=== PATIENT | female | born 1995 | race Caucasian/White ===

== ENCOUNTER 2020-04-15 16:44 | Outpatient (CLI) | payer OTHER, SELFPAY | END 2020-04-15 16:45 | disposition home or self-care (01) | PROVIDERS: PCP Family Medicine; Visit Provider Obstetrics & Gynecology | DX: Z01.818 Encounter for other preprocedural examination (principal); R10.2 Pelvic and perineal pain | CPT/HCPCS: 36415; 86850; 86900; 86901 ==

== ENCOUNTER 2020-04-21 00:17 | Outpatient (CLI) | payer OTHER, SELFPAY ==
[2020-04-21 15:58] LABS: SARS-CoV-2 RNA PCR Negative
== END 2020-04-21 00:18 | disposition home or self-care (01) ==
LOC: ANHCOVIDDT 00:17
PROVIDERS: PCP Family Medicine; Visit Provider Obstetrics & Gynecology
DX: Z01.818 Encounter for other preprocedural examination (principal); Z11.59 Encounter for screening for other viral diseases
CPT/HCPCS: 87635; C9803; U0003

== ENCOUNTER 2020-04-23 01:01 | Day surgery (SDC) | payer OTHER, SELFPAY ==
[2020-04-09 16:59] VITALS: BMI 32.2
[2020-04-23] VITALS (8 sets, daily range): BP systolic 105–149; BP diastolic 70–84; PULSE 79–121; RESP 10–20; TEMP 36.3–36.4; O2SAT 92–100
--- NOTE | 2020-04-23 11:59 | P.HP_ITS ---
H&P: HPI History of Present Illness Chief complaint: Pelvic Pain/ Uterine Polyps/ Endometriosis Narrative: 25 y/o nulligravida with pelvic pain and dyspareunia. She had an ultrasound demonstrating several 4cm structures clinically suspicious for endometriomas. The endometrial complex is thick and irregular. She has been trying for preganancy as well. Review of Systems Review of Systems: All systems reviewed & are unremarkable except as noted in HPI and below Meds Home Medications and Allergies Home Medications Medication Instructions Recorded Confirmed Type sertraline 100 mg PO DAILY 04/09/20 04/09/20 History Allergies Allergy/AdvReac Type Severity Reaction Status Date / Time amoxicillin Allergy Hives Verified 04/09/20 16:58 Exam Const: Orientation/consciousness: patient oriented x3 Other: Well- developed, well-nourished female in no acute distress. Neck: Thyroid: thyroid normal Lymphatic: no lymphadenopathy noted (in neck, axilla or inguinal nodes) Resp: Effort & Inspection: normal respiratory effort Auscultation: clear to auscultation bilaterally Cardio: Rate: regular rate Rhythm: regular rhythm Heart sounds: S1 normal heart sound present and S2 normal heart sound present GI: Other: ABD: Soft, nontender, nondistended. No guarding or rebound tenderness. No hepatosplenomegaly. : General: Yes no CVA tenderness Other: Deferred to the OR Back/Spine/Pelvis: Back: no CVA tenderness Skin: General skin exam: normal color and no rashes or lesions noted Neuro: General: patient oriented x3 Extrem: Other: Extremities: nontender with no edema Psych: Mental Status: mental status grossly normal Affect: normal affect Assessment and Plan Assessment and plan (1) Pelvic pain: Code(s): R10.2 - Pelvic and perineal pain Status: Acute Assessment and Plan: I have offered her a diagnostic laparoscopy with hysteroscopy, D&C and chromopertubation. She understands risks of surgery to include risks of anesthesia, risks of pain, infection, bleeding, blood products, thromboembolic phenomena and damage to adjacent structures such as bowel, bladder, ureters, blood vessels and nerves. She understands all these risks and elects to proceed with surgery.
[2020-04-23] MEDS: LACTATED RINGERS 1,000 ML 30 ML IV CONT ×2 (12:25→14:31)
--- NOTE | 2020-04-23 12:50 | P.PNAN_ITS ---
Anes - Initial Pre Proc Eval Procedure: Operation Date: 04/23/20 13:30 Proposed Procedures p Diagnostic Laparoscopy, Hysteroscopy, Dilation And Curettage with Chromopertubation - Rey Houser MD Date/Time: 04/23/20 12:50 Surgeon: Rey Houser MD Pre Op Diagnosis: Pelvic Pain/ Uterine Polyps/ Endometriosis Patient Data Age: 25 Gender: F Height: 5 ft 2 in Weight: 96.1 kg Last Vital Signs Temp 97.4 F L 04/23/20 11:40 Pulse 95 04/23/20 11:40 Resp 16 04/23/20 11:40 BP 124/82 04/23/20 11:40 Pulse Ox 98 04/23/20 11:40 Allergies Allergy/AdvReac Type Severity Reaction Status Date / Time amoxicillin Allergy Hives Verified 04/09/20 16:58 Home Medications Medication Instructions Recorded Confirmed Type sertraline 100 mg PO DAILY 04/09/20 04/09/20 History Patient hx anesthesia problems: none Family hx anesthesia problems: none [facility] Past Medical History Medical History (Updated 04/23/20 @ 12:51 by Aldo Fried MD) Migraine Seizure unknown etiology; was never on any medications for Anes - Eval Final PreProcedure Day of Procedure 04/23/20 12:50 Patient weight: obese Heart: regular rate and rhythm Lungs: clear to auscultation Airway: Mallampati scale class II Neurological: alert and oriented Last oral intake: >/= 8 hours ASA classification: II Emergent: no Anesthetic plan: proceed Anesthesia type and monitoring: general ETT and standard monitoring Informed Consent: The patient's anesthetic plan and its attendant risks and benefits were discussed with the patient/family/POA. Questions were solicited and answers provided to the satisfaction of the patient/family/POA.
[2020-04-23] MEDS: METHYLENE BLUE 0.5% INJ 10 ML AMPULE 2 ML IRRIGATION (13:54)
--- NOTE | 2020-04-23 14:19 | SUR.OPER ---
150ml IVNS hysteroscopy irrigation in and 150ml irrigation out
--- NOTE | 2020-04-23 14:24 | PM.PROC ---
Procedure Note - Detailed Date of procedure: 04/23/20 Pre-op diagnosis: Pelvic Pain/ Uterine Polyps/ Endometriosis Pelvic pain Endometriomas Dysmenorrhea Dyspareunia Abnormal pelvic ultrasound Post-op diagnosis: same Procedure performed: Diagnostic laparoscopy Biopsy of peritoneum of the anterior cul-de-sac Cautery of endometriosis implants I&D bilateral ovarian endometriomas Chromopertubation Hysteroscopy D&C Description of procedure: The patient was taken to the operating room where general endotracheal anesthesia was administered. She was prepared and draped in the usual sterile fashion in the dorsal lithotomy position. The bladder was drained with a red rubber catheter. A sterile speculum was inserted into the vagina and the anterior lip of the cervix was grasped with a single-toothed tenaculum. The acorn uterine manipulator was placed. The speculum was withdrawn. Gloves were changed and attention was turned to the abdomen. An infraumbilical skin incision was made with a scalpel. The abdomen was tented and a 5 millimeter bladeless trocar trocar was advanced under direct laparoscopic visualization. Pneumoperitoneum was administered using carbon dioxide gas. A survey of the pelvis and abdomen yielded the findings noted above. Using the blunt probe, the filmy adhesions in the posterior cul-de-sac were lysed and the ovaries were mobilized and visualized. The biopsy forceps were used to obtain a punch biopsy of the apparent endometriosis implant in the anterior cul-de-sac. Needlepoint electrocautery was then used to cauterize the endometriosis implants. Needlepoint electrocautery was then used to incise the bilateral ovarian chocolate cysts. The pelvis was copiously irrigated and hemostasis was excellent. Finally, methylene blue was instilled through the acorn uterine manipulator and bilateral spill from the fallopian tubes was noted. The pelvis was irrigated again. Hemostasis was excellent. The trocar was withdrawn and the gas was allowed to escape. The skin incision was reapproximated using 4-0 Vicryl in interrupted subcuticular fashion. Dermaflex was applied externally. Attention was then redirected to the vagina. The acorn manipulator was withdrawn and the speculum was reintroduced. Ten mL of 1% lidocaine was administered in a paracervical block. The cervix was then gently dilated using Hegar dilators until an 8 mm dilator could be passed. Hysteroscopy was performed using sterile saline as a distention medium. Findings were as noted above. Sharp curettage was then performed, and endometrial curettings were collected on a Telfa pad and passed off to be sent to pathology. Hemostasis was excellent. Sponge, lap, needle and instrument counts were correct. The patient was awakened and taken to the recovery room in stable condition. I was present and scrubbed through the entire procedure. Implants: None Anesthesia: GETA and local (1% lidocaine paracervical block) Surgeon: Rey Houser MD Estimated blood loss (mL): 5 Drains: No Packing: No Pathology: yes (Peritoneum of anterior cul-de-sac, endometrial curettings) Complications: None Condition: stable Disposition: PACU Findings: On laparoscopy, the right upper quadrant anatomy was unremarkable. The vermiform appendix is unremarkable. The anterior cul-de-sac demonstrated purple nodules suspicious for endometriosis. The uterus and fallopian tubes are unremarkable. Filmy adhesions and the bilateral ovaries had obliterated the posterior cul-de-sac. Both ovaries demonstrated chocolate cysts. There are no other obvious endometriosis implants in the posterior cul-de-sac, on the round ligaments or uterosacral ligaments. Bilateral spill of dye was noted from the fallopian tubes. On hysteroscopy, the endometrial cavity was unremarkable. Both tubal ostia were seen.
[2020-04-23] MEDS: ONDANSETRON INJ 4 MG/2 ML VIAL IV PUSH (15:02)
== END 2020-04-23 16:11 | disposition home or self-care (01) ==
PROVIDERS: PCP Family Medicine; Visit Provider Obstetrics & Gynecology
PROC: 0UDB8ZZ Extraction of Endometrium, Via Natural or Artificial Opening Endoscopic (ICD-10-PCS; CPT 58558; principal; 2020-04-23 13:30)
DX: N80.3 Endometriosis of pelvic peritoneum (principal); R10.2 Pelvic and perineal pain; N80.1 Endometriosis of ovary; N94.10 Unspecified dyspareunia
CPT/HCPCS: 58662; 49321; 58558; 88305; A9270; J1100; J1885; J2250; J2405; J2704; J2710; J3010; J7030; J7120; Q9968